=== PATIENT | male | born 1985 | race Caucasian/White ===

== ENCOUNTER 2022-08-25 18:16 | Emergency (ER) | payer BC ==
[~2022-08-25] VITALS: Ht 177.8 cm; Wt 102.0 kg
[2022-08-25] MEDS ORDERED: SODIUM CHLORIDE 0.9% 1,000 ML IV ONE (18:45)
[2022-08-25] MEDS ORDERED: LEVETIRACETAM 1000MG PREMIX 100 ML IV ONE (18:45)
[2022-08-25 19:33] LABS: INR 1.1; PROTHROMBIN TIME 11.5 sec (9.6-11.0)
[2022-08-25 19:34] LABS: CHLORIDE 99 mEq/L (98-107)
[2022-08-25 19:38] LABS: *AMPHETAMINES SCREEN URINE PRESUMTIVE POSITIVE (NEGATIVE); *BARBITURATES SCREEN URINE NEGATIVE (NEGATIVE); *BENZODIAZEPINES SCREEN URINE PRESUMTIVE POSITIVE (NEGATIVE); *COCAINE SCREEN URINE PRESUMTIVE POSITIVE (NEGATIVE); CANNABINOID URINE SCREEN PRESUMTIVE POSITIVE (NEGATIVE); METHADONE URINE SCREEN NEGATIVE (NEGATIVE); OPIATES URINE SCREEN PRESUMTIVE POSITIVE (NEGATIVE); PHENCYCLIDINE URINE SCREEN NEGATIVE (NEGATIVE)
[2022-08-25 19:42] LABS: ETHANOL BLOOD < 10 mg/dL
[2022-08-25 19:45] LABS: BASOPHILS % 0.3 % (0.0-2.0); HEMATOCRIT. 47.8 % (42.0-52.0); LYMPHOCYTES % 16.7 % (20.0-50.0); MEAN CORPUSCULAR HEMOGLOBIN 32.4 pg (28.0-32.0); MEAN CORPUSCULAR VOLUME 96.7 fL (80.0-94.0); MEAN PLATELET VOLUME 8.4 fl (7.4-10.4); MONOCYTES % 4.7 % (2.0-8.0); NEUTROPHILS % 77.3 % (40.0-76.0); PLATELET 528 x1000/uL (130-400); RED BLOOD CELL COUNT 4.94 mill/uL (4.7-6.1); RED CELL DISTRIBUTION WIDTH 13.1 % (11.6-14.6)
[2022-08-25] MEDS ORDERED: LORAZEPAM 2MG/ML CPJ IV NR (19:45)
[2022-08-25] MEDS ORDERED: SODIUM CHLORIDE 0.9% 1,000 ML IV NR (22:30)
[2022-08-26] MEDS ORDERED: NALO4SPR BOTHNSTRLS (01:18)
[2022-08-26 01:45] VITALS: BP 125/82
== END 2022-08-26 01:45 | disposition home or self-care (01) ==
LOC: ER 18:16
DX: T40.5X1A Poisoning by cocaine, accidental (unintentional), initial encounter (principal); T40.601A Poisoning by unspecified narcotics, accidental (unintentional), initial encounter; R56.9 Unspecified convulsions; Y92.89 Other specified places as the place of occurrence of the external cause
CPT/HCPCS: 36415; 80048; 80053; 80305; 80320; 85025; 85610; 96365; 96366; 96375; 99285; J1953; J2060; J7030; Z7610; G0480